=== PATIENT | female | born 1990 | race Caucasian/White ===

== ENCOUNTER 2016-08-19 19:51 | Emergency (ER) | payer OTHER ==
[2016-08-19 19:57] VITALS: BP 132/85; PULSE 79; RESP 18; TEMP 97.9
--- NOTE | 2016-08-19 20:12 | ED ---
Lower Extremity Injury HPI - General Chief Complaint: Extremity Injury, Lower Stated Complaint: R Foot Injury Time Seen by Provider: 08/19/16 20:06 Source: patient, RN notes reviewed Mode of arrival: ambulatory Limitations: no limitations - History of Present Illness Initial Comments: 26-year-old female presents emergency Department chief complaint of right foot pain. Patient states that she dropped a weight on her foot earlier today. Patient states she now has noticed bruising to the top of her foot as well as pain with walking. Patient states that she is able to bear weight chest causes increased pain. Patient denies any numbness or tingling. Patient denies any skin trauma. Patient denies any ankle pain. Patient states there is no other injuries from the incident. Patient states the pain is moderate there is no radiation. Patient states it is a achy type pain.Patient denies any recent fever, chills, shortness of breath, chest pain, back pain, abdominal pain, nausea vomiting, numbness or tingling, dysuria or hematuria, constipation or diarrhea, headaches or visual changes, or any other current symptoms. - Related Data Home Medications Medication Instructions Recorded Confirmed No Known Home Medications [No 08/19/16 08/19/16 Known Home Medications] Allergies Allergy/AdvReac Type Severity Reaction Status Date / Time No Known Allergies Allergy Verified 08/19/16 20:16 Review of Systems ROS Statement: Those systems with pertinent positive or pertinent negative responses have been documented in the HPI. ROS Other: All systems not noted in ROS Statement are negative. Past Medical History Past Medical History: No Reported History History of Any Multi-Drug Resistant Organisms: None Reported Past Surgical History: No Surgical Hx Reported Past Psychological History: No Psychological Hx Reported Smoking Status: Never smoker Past Alcohol Use History: Rare Past Drug Use History: None Reported General Exam - General Exam Comments Initial Comments: General: The patient is awake and alert, in no distress, and does not appear acutely ill. Neck: The neck is supple, there is no tenderness. Cardiovascular: There is a regular rate and rhythm. No murmur, rub or gallop is appreciated. Respiratory: Lungs are clear to auscultation, respirations are non-labored, breath sounds are equal. No wheezes, stridor, rales, or rhonchi. Musculoskeletal: Sensation intact with 2+ pulses throughout the right lower externa. Full range of motion of right knee and right ankle and right foot. Patient does appear to have some ecchymosis to the mid foot more proximal. There is no skin trauma. No tenderness to throughout the medic tarsals. Neurological: CN II-XII intact, There are no obvious motor or sensory deficits. Coordination appears grossly intact. Speech is normal. Skin: Skin is warm and dry and no rashes or lesions are noted. Psychiatric: Normal mood and affect. Limitations: no limitations Course Vital Signs 08/19/16 19:55 Temperature 97.9 F Pulse Rate 79 Respiratory 18 Rate Blood Pressure 132/85 O2 Sat by Pulse 99 Oximetry Medical Decision Making - Medical Decision Making 26-year-old female presents to emergency Department chief complaint of right foot pain. This time patient's x-rays reviewed that shows no acute fracture. At this time we discussed patient is no significant movement for contusion. We did discuss that she does need to follow-up in a week for repeat evaluation if she is not feeling 100% better. We discussed return parameters. The patient stated she understood and all her questions have been answered. His time she will be discharged home. - Radiology Data Radiology results: report reviewed, image reviewed Disposition Clinical Impression: Contusion of right foot Disposition: HOME SELF-CARE Condition: Stable Instructions: Foot Contusion (ED) Additional Instructions: Please use medication as discussed. Please follow up with family doctor if symptoms have not improved over the next two days. Please return to the emergency room if your symptoms increase or worsen or for any other concerns. Referrals: Jm Carlos DO [Doctor of Osteopathic Medicine] - 1-2 days Time of Disposition: 20:51
--- NOTE | 2016-08-19 20:39 | XR ---
Right foot HISTORY: Trauma and pain 3 views of the right foot Bone mineralization, joint spaces and alignment are maintained. Fourth digit is flexed which could li ang sensitivity. IMPRESSION: No fracture or dislocation is evident, follow-up as indicated.
== END 2016-08-19 21:17 | disposition home or self-care (01) ==
LOC: EC 19:51
DX: S90.31XA Contusion of right foot, initial encounter (principal); W20.8XXA Other cause of strike by thrown, projected or falling object, initial encounter
CPT/HCPCS: 99283

== ENCOUNTER 2017-02-10 15:31 | Emergency (ER) | payer OTHER ==
[2017-02-10 15:47] VITALS: RESP 18
--- NOTE | 2017-02-10 16:05 | ED ---
General Adult HPI - General Chief complaint: Abdominal Pain Stated complaint: Poss UTI Time Seen by Provider: 02/10/17 15:50 Source: patient, RN notes reviewed, old records reviewed Mode of arrival: ambulatory Limitations: no limitations - History of Present Illness Initial comments: chief complaint history of present illness; is a 26-year-old female who since this morning has had frequency urgency and dysuria. Patient reports having had a urinary tract infection infection in the past. - Related Data Home Medications Medication Instructions Recorded Confirmed Biotin 5 mg PO DAILY 02/10/17 02/10/17 Calcium Carbonate [Calcium] 600 mg PO DAILY 02/10/17 02/10/17 Cholecalciferol [Vitamin D3] 1,000 unit PO DAILY 02/10/17 02/10/17 [place]-3 Fatty Acids/Fish Oil [Fish 1 cap PO DAILY 02/10/17 02/10/17 Oil 1,000 mg Softgel] Turmeric Root Extract [Turmeric] 500 mg PO DAILY 02/10/17 02/10/17 Vitamin B Complex 1 cap PO DAILY 02/10/17 02/10/17 Previous Rx's Medication Instructions Recorded Phenazopyridine [Pyridium] 200 mg PO TID #6 tablet 02/10/17 Sulfamethox-Tmp 800-160Mg [Bactrim 1 each PO Q12HR #20 tab 02/10/17 DS 800-160 mg] Allergies Allergy/AdvReac Type Severity Reaction Status Date / Time No Known Allergies Allergy Verified 02/10/17 15:51 Review of Systems ROS Statement: Those systems with pertinent positive or pertinent negative responses have been documented in the HPI. review of systems no other complaints at this time other than frequency urgency and dysuria. All systems were reviewed.Past medical problems UTI, previous surgery LEEP procedure. Family history grandfather has diabetes. She denies any ALLERGIES nonsmoker drinks alcohol socially. ROS Other: All systems not noted in ROS Statement are negative. Past Medical History Past Medical History: No Reported History History of Any Multi-Drug Resistant Organisms: None Reported Past Surgical History: No Surgical Hx Reported Additional Past Surgical History / Comment(s): LEEP Past Psychological History: No Psychological Hx Reported Smoking Status: Never smoker Past Alcohol Use History: Rare Past Drug Use History: None Reported General Exam - General Exam Comments Initial Comments: General: The patient is awake and alert, in no distress, and does not appear acutely ill. here for frequency urgency urgency and dysuria. Vital signs temp 98.3 pulse 65 respiratory rate 18 pulse ox 98% room air blood pressure 119/81 Eye: Pupils are equal, round and reactive to light, extra-ocular movements are intact ; there is normal conjunctiva bilaterally. No signs of icterus. Ears, nose, mouth and throat: There are moist mucous membranes and no oral lesions. Neck: The neck is supple, there is no tenderness , no anterior cervical lymphadenopathy, thyroid not enlarged. Cardiovascular: There is a regular rate and rhythm. No murmur, rub or gallop is appreciated. Respiratory: Lungs are clear to auscultation, respirations are non-labored, breath sounds are equal. No wheezes, stridor, rales, or rhonchi. Gastrointestinal: mild tenderness in suprapubic region. No rebound or referred pain. No organomegaly. Back: no back pain with palpation or movement. Musculoskeletal: Normal ROM, no tenderness, There is no pedal edema. There is no calf tenderness or swelling. Sensation intact. Pulses equal bilaterally 2+. no complaint of any neuro deficits. Skin: bruising right thigh without complaint Limitations: no limitations Course Vital Signs 02/10/17 15:45 Temperature 98.3 F Pulse Rate 65 Respiratory 18 Rate Blood Pressure 119/81 O2 Sat by Pulse 98 Oximetry Medical Decision Making - Medical Decision Making Medical decision making the patient's urine shows negative for . She has 34 whites 6 reds. Clumps of WBCs. Plan the patient be placed on Pyridium for discomfort, advised increase her fluid intake. And Bactrim DS one tablet twice day for 10 days. - Lab Data Lab Results 02/10/17 02/10/17 Range/Units 16:02 16:02 Urine Color Yellow Urine Appearance Cloudy H (Clear) Urine pH 7.5 (5.0-8.0) Ur Specific [place] 1.014 (1.001-1.035) Urine Protein Trace H (Negative) Urine Glucose (UA) Negative (Negative) Urine Ketones Negative (Negative) Urine Blood Negative (Negative) Urine Nitrite Positive H (Negative) Urine Bilirubin Negative (Negative) Urine Urobilinogen <2.0 (<2.0) mg/dL Ur Leukocyte Esterase Small H (Negative) Urine RBC 6 H (0-5) /hpf Urine WBC 34 H (0-5) /hpf Urine WBC Clumps Rare H (None) /hpf Ur Squamous Epith Cells 2 (0-4) /hpf Amorphous Sediment Occasional H (None) /hpf Urine Bacteria Occasional H (None) /hpf Urine HCG, Qual Not Detected (Not Detectd) Disposition Clinical Impression: Urinary tract infection Disposition: HOME SELF-CARE Condition: Fair Instructions: Urinary Tract Infection in Women (ED) Additional Instructions: Increase fluids, take thyroid ADM which will turn urine orange. Don't wear contacts well using Pyridium. Take Bactrim 2 tablets daily as directed. Suggested to get repeat urinalysis 1 week after he finished antibiotics make sure infections gone. Follow-up with family physician Prescriptions: Phenazopyridine [Pyridium] 200 mg PO TID #6 tablet Sulfamethox-Tmp 800-160Mg [Bactrim DS 800-160 mg] 1 each PO Q12HR #20 tab Referrals: None,Stated [Primary Care Provider] - 1-2 days Time of Disposition: 16:38
[2017-02-10 16:27] LABS: Amorphous Sediment,Urine Occasional /hpf; Appearance,Urine Cloudy (Clear); Bacteria,Urine Occasional /hpf; Bilirubin,Urine Negative (Negative); Glucose,Urine (UA) Negative (Negative); Ketones,Urine Negative (Negative); Leukocyte Esterase,Urine Small (Negative); Nitrite,Urine Positive (Negative); PH, Urine 7.5 (5.0-8.0); Particle Count 7477; Protein,Urine Trace (Negative); RBC,Urine 6 /hpf (0-5); Specific Gravity,Urine 1.014 (1.001-1.035); Squamous Epithelial Cell,Urine 2 /hpf (0-4); UA Billing (MACRO vs. MICRO) MICRO; Urobilinogen,Urine <2.0 mg/dL (<2.0); WBC,Urine 34 /hpf (0-5)
[2017-02-10 16:45] VITALS: BP 118/72; PULSE 58; TEMP 97.1
== END 2017-02-10 16:54 | disposition home or self-care (01) ==
LOC: EC 15:31
DX: N39.0 Urinary tract infection, site not specified (principal); Z79.899 Other long term (current) drug therapy
CPT/HCPCS: 81001; 81025; 87077; 87086; 87186; 99284

== ENCOUNTER 2018-06-29 02:38 | Emergency (ER) | payer OTHER ==
[2018-06-29 02:48] VITALS: BP 126/87; PULSE 78; RESP 18; TEMP 98.2
[2018-06-29] MEDS ORDERED: AMOXIC-POT CLAV 875MG STARTER 2 EACH TABLET PO STA (03:04)
--- NOTE | 2018-06-29 03:04 | ED ---
ENT HPI - General Chief complaint: ENT Stated complaint: Earache Time Seen by Provider: 06/29/18 02:53 Source: patient Mode of arrival: ambulatory Limitations: no limitations - History of Present Illness Initial comments: Clarissa is a previously healthy 28-year-old female presents to the emergency department today for acute onset of right ear pain. Patient reports that she's been in her usual state of health until this evening, she was trying to sleep and noted that her right ear sharp pain. This prompted her come to the ER for evaluation. Patient reports she does not get frequent ear infections, she has had no history of tympanostomy tubes as a child. She does have a chronic cough but denies any recent worsening, fevers or shortness of breath. - Related Data Home Medications Medication Instructions Recorded Confirmed Biotin 5 mg PO DAILY 02/10/17 02/10/17 Calcium Carbonate [Calcium] 600 mg PO DAILY 02/10/17 02/10/17 Cholecalciferol [Vitamin D3] 1,000 unit PO DAILY 02/10/17 02/10/17 [place]-3 Fatty Acids/Fish Oil [Fish 1 cap PO DAILY 02/10/17 02/10/17 Oil 1,000 mg Softgel] Turmeric Root Extract [Turmeric] 500 mg PO DAILY 02/10/17 02/10/17 Vitamin B Complex 1 cap PO DAILY 02/10/17 02/10/17 Previous Rx's Medication Instructions Recorded Phenazopyridine [Pyridium] 200 mg PO TID #6 tablet 02/10/17 Sulfamethox-Tmp 800-160Mg [Bactrim 1 each PO Q12HR #20 tab 02/10/17 DS 800-160 mg] Amoxicillin 500 mg PO BID 10 Days #20 capsule 06/29/18 Allergies Allergy/AdvReac Type Severity Reaction Status Date / Time No Known Allergies Allergy Verified 02/10/17 15:51 Review of Systems ROS Statement: Those systems with pertinent positive or pertinent negative responses have been documented in the HPI. ROS Other: All systems not noted in ROS Statement are negative. Past Medical History Past Medical History: No Reported History History of Any Multi-Drug Resistant Organisms: None Reported Past Surgical History: No Surgical Hx Reported Additional Past Surgical History / Comment(s): LEEP Past Psychological History: No Psychological Hx Reported Smoking Status: Never smoker Past Alcohol Use History: Rare Past Drug Use History: None Reported General Exam - General Exam Comments Initial Comments: Physical Exam GENERAL: Patient is well-developed and well-nourished. Patient is nontoxic and well-hydrated and is in mild distress, appears uncomfortable holding her right ear HENT: Normocephalic, Atraumatic. Left TM normal Right TM is erythematous and injected, there are small lesions on the tympanic membrane concerning for bullous myringitis versus shingles EYES: PERRL, EOMI PULMONARY: Unlabored respirations. No audible rales rhonchi or wheezing was noted. CARDIOVASCULAR: There is a regular rate and rhythm without any murmurs gallops or rubs. ABDOMEN: Soft and nontender with normal bowel sounds. SKIN: Skin is clear with no lesions or rashes and otherwise unremarkable. : Deferred NEUROLOGIC: Patient is alert and oriented x3. Moving all extremities spontaneously MUSCULOSKELETAL: Normal extremities with adequate strength and full range of motion. No lower extremity swelling or edema. No calf tenderness. PSYCHIATRIC: Normal psychiatric evaluation. Limitations: no limitations Limitations: no limitations Course Vital Signs 06/29/18 02:44 Temperature 98.2 F Pulse Rate 78 Respiratory 18 Rate Blood Pressure 126/87 O2 Sat by Pulse 98 Oximetry Medical Decision Making - Medical Decision Making The patient was seen and evaluated, history is obtained from the patient Physical exam does reveal otitis media with effusion and purulent sputum time the right TM next line there is small lesion concerning for bullous myringitis versus possible shingles, I discussed this with the patient advised at this time I would not start steroids or antivirals however she worsens or develops any lesions in the ear canal on the ear on the patient to return to the emergency department immediately for reevaluation, patient is agreeable Amoxicillin started set was ordered First dose is given in the emergency department Patient discharged home in stable condition Disposition Clinical Impression: Otitis media Disposition: HOME SELF-CARE Instructions: Ear Infection (ED) Prescriptions: Amoxicillin 500 mg PO BID 10 Days #20 capsule Is patient prescribed a controlled substance at d/c from ED?: No Referrals: None,Stated [Primary Care Provider] - 1-2 days Time of Disposition: 03:05
== END 2018-06-29 03:12 | disposition home or self-care (01) ==
LOC: EC 02:38
DX: H66.91 Otitis media, unspecified, right ear (principal); R05 Cough
CPT/HCPCS: 99282

== ENCOUNTER → 2022-11-07 | Outpatient (CLI) | payer BC ==
[2022-11-07 20:42] LABS: HCT 35.9 % (37.2-46.3); HGB 11.7 g/dL (12.0-15.0); MCH 32.6 pg (27.0-32.0); MCHC 32.6 g/dL (32.0-37.0); Mean Platelet Volume 10.9 fL (9.5-12.2); NRBC Per 100 WBC 0 /100 WBCS (0.0-0.0); Platelet Count 207 X 10*3/uL (140-440); RBC 3.59 X 10*6/uL (4.10-5.20); RDW 12.5 % (11.5-14.5); WBC 11.65 X 10*3/uL (4.50-10.00)
== END | disposition home or self-care (01) ==
LOC: LABWHC1 11:35
PROVIDERS: ATTEND Obstetrics & Gynecology Obstetrics
DX: Z36.9 Encounter for antenatal screening, unspecified (principal)
CPT/HCPCS: 36415; 82950; 85027

== ENCOUNTER 2023-01-17 00:43 | Inpatient (IN) | payer BC ==
[2023-01-17] MEDS ORDERED: miSOPROStoL 200 MCG TAB PO PRN (01:28)
[2023-01-17] MEDS ORDERED: TRANEXAMIC 1,000 MG/100ML-NACL 1,000 MG in EMPTY BAG 1 BAG IV PRN (01:28)
[2023-01-17] MEDS ORDERED: TERBUTALINE 1 MG/ML VIAL SQ PRN (01:28)
[2023-01-17] MEDS ORDERED: METHYLERGONOVINE 0.2 MG/ML 1 ML AMP IM PRN (01:28)
[2023-01-17] MEDS ORDERED: OXYTOCIN 10 UNIT/ML 1 ML VIAL IM PRN (01:28)
[2023-01-17] MEDS ORDERED: CARBOPROST TROMETHAMINE 250 MCG/ML 1 ML AMP IM PRN (01:28)
[2023-01-17] MEDS ORDERED: LIDOCAINE 0.5% (PF) 5 MG/ML (50 ML SDV) SQ PRN (01:28)
[2023-01-17] MEDS: LACTATED RINGERS 1,000 ML IV SCH ×3 (01:30→10:06)
[2023-01-17] MEDS ORDERED: OXYTOCIN 30 UNITS/500 ML NS 30 UNIT in SALINE 1 500ML.BAG IV SCH ×2 (01:30→13:30)
[2023-01-17 08:09] LABS: Basophils % (A) 0 %; Eosinophils # (A) 0.1 k/uL (0-0.7); Eosinophils % (A) 1 %; HCT 35.4 % (34.0-46.0); HGB 11.8 gm/dL (11.4-16.0); Lymphocytes # (A) 2.3 k/uL (1.0-4.8); Lymphocytes % (A) 18 %; MCH 32.2 pg (25.0-35.0); MCHC 33.3 g/dL (31.0-37.0); MCV 96.8 fL (80.0-100.0); Mean Platelet Volume 11.2; Monocytes # (A) 0.9 k/uL (0-1.0); Monocytes % (A) 8 %; Neutrophils # (A) 8.7 k/uL (1.3-7.7); Neutrophils % (A) 71 %; Platelet Count 221 k/uL (150-450); RBC 3.66 m/uL (3.80-5.40); RDW 13.3 % (11.5-15.5); WBC 12.4 k/uL (3.8-10.6)
[2023-01-17] MEDS ORDERED: ROPIVACAINE 5 MG/ML 20 ML AMPULE ONE (09:24)
[2023-01-17] MEDS ORDERED: fentaNYL (PF) 50 MCG/ML 5 ML AMP ONE (09:24)
[2023-01-17] MEDS ORDERED: SODIUM CHLORIDE 0.9% 100 ML BAG ONE (09:24)
--- NOTE | 2023-01-17 10:42 | P.HPOB ---
History of Present Illness H&P Date: 01/17/23 Chief Complaint: 38+ weeks, spontaneous rupture of membranes, early labor The patient is a 32-year-old 1 para 0 admitted at 38+ weeks as established by last menstrual period and confirmed by second trimester ultrasound. She is admitted with documented spontaneous rupture of membranes for clear fluid. Her has been uncomplicated and group B strep status is negative. On labor and delivery, all signs reassuring with a category 1 heart rate tracing. Obstetrical history: 1 para 0 with current statistics listed in history of present illness. EDC of 01/27/2023 was established by last menstrual period and confirmed by second trimester ultrasound. Laboratory workup demonstrates a blood type of O+ with a negative antibody screen. Rubella status is immune. The remainder of the laboratory workup was within normal limits. One hour Glucola was normal and group B strep status is negative. Gynecologic history: Unremarkable with no history of any infections to include STDs. Review of Systems Review of systems is confined to history of present illness. Past Medical History Past Medical History: No Reported History History of Any Multi-Drug Resistant Organisms: None Reported Past Surgical History: No Surgical Hx Reported Additional Past Surgical History / Comment(s): LEEP Past Anesthesia/Blood Transfusion Reactions: No Reported Reaction Past Psychological History: No Psychological Hx Reported Smoking Status: Never smoker Past Alcohol Use History: Rare Past Drug Use History: None Reported Medications and Allergies Home Medications Medication Instructions Recorded Confirmed Type Aspirin [Adult Low Dose Aspirin EC] 81 mg PO DAILY 01/17/23 01/17/23 History Vit No.179/Iron/Folic 1 each PO DAILY 01/17/23 01/17/23 History [ Tablet] Allergies Allergy/AdvReac Type Severity Reaction Status Date / Time No Known Allergies Allergy Verified 02/10/17 15:51 Exam Vital Signs Temp Pulse Resp BP Pulse Ox 01/17/23 01:20 97.6 F 92 18 118/67 97 01/17/23 01:03 97.6 F 92 16 118/67 97 Intake and Output 01/16/23 01/17/23 01/17/23 22:59 06:59 14:59 Other: # Voids 2 Weight 89.358 kg In general, this is a well-developed, well-nourished white female in no acute distress. Her heart has a regular rhythm and rate without murmur. Her lungs are clear to auscultation bilaterally in all palomares. Her abdomen is gravid, nondistended, has normal active bowel sounds, is soft, nontender, and without any palpable masses aside from the uterine fundus. Her extremities are without any cyanosis, clubbing, or significant edema and are nontender to palpation bilaterally. Digital cervical examination demonstrates her cervix to be approximately 5 cm dilated, 70% effaced, the vertex in presentation at -2 station. Spontaneous rupture of membranes has been documented but amniotic membranes are palpable in front of the head and a ruptured for clear fluid artificially. Results Result Diagrams: 01/17/23 01:29 Abnormal Lab Results - Last 24 Hours (Table) 01/17/23 Range/Units 01:29 WBC 12.4 H (3.8-10.6) k/uL RBC 3.66 L (3.80-5.40) m/uL Neutrophils # 8.7 H (1.3-7.7) k/uL Assessment and Plan (1) Spontaneous rupture of amniotic membranes Current Visit: Yes Status: Acute Code(s): UAF9349 - SNOMED Code(s): 1 24122124 (2) Active labor at term Current Visit: Yes Status: Acute Code(s): CPV6424 - SNOMED Code(s): 05543034 Plan: Patient is admitted for active management of labor. She'll continue to have close maternal and surveillance and expectant management will be practice. An epidural catheter has been placed for analgesia.
[2023-01-17] MEDS ORDERED: diphenhydrAMINE 50 MG CAP PO PRN (13:29)
[2023-01-17] MEDS ORDERED: LANOLIN CREAM 5 GM TUBE TOPICAL PRN (13:29)
[2023-01-17] MEDS ORDERED: SIMETHICONE 80 MG CHEWABLE PO PRN (13:29)
[2023-01-17] MEDS ORDERED: diphenhydrAMINE 25 MG CAP PO PRN (13:29)
[2023-01-17] MEDS ORDERED: HYDROcodone/APAP 7.5-325MG 1 EACH TAB PO PRN (13:29)
[2023-01-17] MEDS ORDERED: ZOLPIDEM 5 MG TAB PO PRN (13:29)
[2023-01-17] MEDS ORDERED: diphenhydrAMINE 50 MG/ML 1 ML VIAL IVP PRN ×2 (13:29)
[2023-01-17] MEDS ORDERED: HYDROcodone/APAP 5-325MG 1 EACH TAB PO PRN (13:29)
[2023-01-17] MEDS ORDERED: BENZOCAINE/MENTHOL SPRAY 1 GM/SPRAY AEROSOL TOPICAL PRN (13:29)
[2023-01-17] MEDS ORDERED: HYDROCORTISONE 2.5% RECTAL CREAM 30 GM TUBE RECTAL PRN (13:29)
--- NOTE | 2023-01-17 13:32 | P.PROBDLV ---
Vaginal Delivery Note - . Vaginal Delivery Note: Patient is a 32-year-old 1 para 0 admitted at 38-4/7 weeks by good dating parameters. She is admitted with documented spontaneous rupture of membranes in early labor with all signs reassuring. Her has been entirely uncomplicated and group B strep status is negative. On labor and delivery, she had Pitocin augmentation started and an epidural catheter placed her on the onset of the active phase of labor. She then made steady progress to the active phase of labor to complete and pushed over the course of approximately 1 hour to a normal spontaneous vaginal delivery of a viable 7 lbs. 11 oz. baby boy with Apgars of 8 at 1 minute and 9 at 5 minutes delivered in the direct occiput anterior position. There was a nuchal cord times to which was reduced following delivery of the . The placenta was delivered spontaneously, intact, and grossly normal with a grossly normal, centrally inserted three-vessel cord. Second-degree midline perineal laceration was noted and was repaired in standard fashion using 3-0 chromic catgut without diffi culty. Estimated blood loss for the case is approximately 150 mL. There were no complications. All sponge, instrument, needle counts were correct. Both mother and infant are resting comfortably in recovery.
[2023-01-17] MEDS: IBUPROFEN 600 MG TAB PO PRN (13:54)
[2023-01-17] MEDS: ACETAMINOPHEN TAB 325 MG TAB PO PRN (19:55)
[2023-01-17] MEDS: SENNOSIDES-DOCUSATE SODIUM 1 EACH TAB PO SCH (19:56)
[2023-01-18] MEDS: IBUPROFEN 600 MG TAB PO PRN ×2 (04:24→19:48)
[2023-01-18 06:44] LABS: Basophils % (A) 0 %; Eosinophils # (A) 0.1 k/uL (0-0.7); Eosinophils % (A) 0 %; HCT 30.9 % (34.0-46.0); HGB 10.4 gm/dL (11.4-16.0); Lymphocytes # (A) 2.2 k/uL (1.0-4.8); Lymphocytes % (A) 14 %; MCHC 33.7 g/dL (31.0-37.0); MCV 97.8 fL (80.0-100.0); Mean Platelet Volume 9.7; Monocytes % (A) 6 %; Neutrophils # (A) 12.2 k/uL (1.3-7.7); Neutrophils % (A) 78 %; Platelet Count 177 k/uL (150-450); RBC 3.16 m/uL (3.80-5.40); RDW 13.2 % (11.5-15.5); WBC 15.7 k/uL (3.8-10.6)
[2023-01-18] MEDS: SENNOSIDES-DOCUSATE SODIUM 1 EACH TAB PO SCH ×2 (08:27→19:48)
--- NOTE | 2023-01-18 09:56 | P.PNOBGVD ---
Subjective - Subjective Interval history: The patient reports some struggles with nursing and wishes to remain in the h [facility]spital for assistance from the nursing staff. Patient reports: Reports appetite normal, Reports voiding normally, Reports pain well controlled, Reports ambulating normally : doing well Objective - Latest Vital Signs Latest vital signs: Vital Signs Temp Pulse Resp BP Pulse Ox 01/18/23 08:00 98.2 F 79 16 109/66 98 01/18/23 00:00 98.2 F 83 16 113/68 97 01/17/23 20:00 98.8 F 95 16 125/70 97 01/17/23 15:20 97.1 F L 85 17 121/72 01/17/23 14:50 97.8 F 80 48 H 121/59 01/17/23 14:20 72 16 118/61 01/17/23 14:05 79 17 118/62 01/17/23 13:50 85 17 117/67 01/17/23 13:35 84 17 112/55 01/17/23 13:20 95.8 F L 93 17 119/58 Intake and Output 01/17/23 01/18/23 01/18/23 22:59 06:59 14:59 Output Total 115 Balance -115 Output: Output, Quantitative 115 Blood Loss Other: # Voids 2 1 - Exam Extremities: Present: normal Abdomen: Present: normal appearance, soft Uterus: Present: normal, firm (The uterine fundus as tonic and nontender around the umbilicus.) - Labs Labs: Abnormal Lab Results - Last 24 Hours (Table) 01/18/23 Range/Units 05:24 WBC 15.7 H (3.8-10.6) k/uL RBC 3.16 L (3.80-5.40) m/uL Hgb 10.4 L (11.4-16.0) gm/dL Hct 30.9 L (34.0-46.0) % Neutrophils # 12.2 H (1.3-7.7) k/uL Assessment and Plan (1) Spontaneous rupture of amniotic membranes Current Visit: Yes Status: Acute Code(s): [id number] - SNOMED Code(s): 899956468 (2) Active labor at term Current Visit: Yes Status: Acute Code(s): SHD4940 - SNOMED Code(s): 75484446 (3) Normal spontaneous vaginal delivery Current Visit: Yes Status: Acute Code(s): O80 - ENCOUNTER FOR FULL-TERM UNCOMPLICATED DELIVERY SNOMED Code(s): 87414477 Plan: Continue routine care. I would anticipate that patient being discharged home tomorrow pending no complications. In the meantime, she will continue to receive help from the nursing staff regarding breast-feeding.
[2023-01-18] MEDS: ACETAMINOPHEN TAB 325 MG TAB PO PRN (16:07)
[2023-01-19 00:22] VITALS: RESP 16
[2023-01-19] MEDS: IBUPROFEN 600 MG TAB PO PRN (06:27)
--- NOTE | 2023-01-19 09:41 | P.DS ---
Providers Date of admission: 01/17/23 01:04 Expected date of discharge: 01/19/23 Attending physician: Nellie Dooley Primary care physician: Stated None - Discharge Diagnosis(es) (1) Active labor at term Current Visit: Yes Status: Acute (2) Normal spontaneous vaginal delivery Current Visit: Yes Status: Acute (3) Nuchal cord, delivered, current hospitalization Current Visit: Yes Status: Acute (4) Perineal laceration during delivery Current Visit: Yes Status: Acute (5) Spontaneous rupture of amniotic membranes Current Visit: Yes Status: Acute Hospital Course: Is a 32-year-old 1 now para 1 that was admitted at 38-4/7 weeks with documented spontaneous rupture of membranes and early labor. Patient was admitted. Her was uncomplicated, group beta strep status was negative. On labor and delivery she underwent Pitocin augmentation of labor and did request epidural placement. Epidural was placed without difficulty by the anesthesia department. Patient made progress to complete and began pushing. Patient had a normal spontaneous vaginal delivery of a viable male infant, weight of 7 lbs. 11 oz., . Patient did sustain a second degree midline perineal laceration that was repaired in the usual fashion with 3-0 chromic. Patient is done well . On this day #2 she is ambulating and voiding without difficulty. She tolerating regular diet without nausea or vomiting. She states her lochia is moderate. She is breast-feeding. She does wish discharge home. Patient Condition at Discharge: Good Plan - Discharge Summary New Discharge Prescriptions: No Action Aspirin [Adult Low Dose Aspirin EC] 81 mg PO DAILY Vit No.179/Iron/Folic [ Tablet] 1 each PO DAILY Discharge Medication List Aspirin [Adult Low Dose Aspirin EC] 81 mg PO DAILY 01/17/23 [History] Vit No.179/Iron/Folic [ Tablet] 1 each PO DAILY 01/17/23 [History] Follow up Appointment(s)/Referral(s): Nellie Dooley DO [Doctor of Osteopathic Medicine] - 4 Weeks Patient Instructions/Handouts: Vaginal Delivery (GEN), Vaginal Delivery (DC) Activity/Diet/Wound Care/Special Instructions: No tub baths or intercourse until 6 weeks postoperatively. [id number] ibuprofen as needed for pain. Routine check is to be scheduled for weeks . Patient is to call the office should she have any concerns prior to this appointment. Discharge Disposition: HOME SELF-CARE
[2023-01-19] MEDS: SENNOSIDES-DOCUSATE SODIUM 1 EACH TAB PO SCH (10:40)
[2023-01-19 10:54] VITALS: BP 116/65; PULSE 79; TEMP 98.4
== END 2023-01-19 14:15 | disposition home or self-care (01) | DRG 807 ==
LOC: FBPOP 00:43 → 4FBP 01:04
PROVIDERS: ADMIT Obstetrics & Gynecology; ATTEND Obstetrics & Gynecology Obstetrics
PROC: 10E0XZZ Delivery of Products of Conception, External Approach (ICD-10-PCS; principal; 2023-01-17)
PROC: 0KQM0ZZ Repair Perineum Muscle, Open Approach (ICD-10-PCS; 2023-01-17)
PROC: 3E033VJ Introduction of Other Hormone into Peripheral Vein, Percutaneous Approach (ICD-10-PCS; 2023-01-17)
DX: O42.92 Full-term premature rupture of membranes, unspecified as to length of time between rupture and onset of labor (principal); Z37.0 Single live birth; O69.81X0 Labor and delivery complicated by cord around neck, without compression, not applicable or unspecified; O70.1 Second degree perineal laceration during delivery; Z79.82 Long term (current) use of aspirin; Z3A.38 38 weeks gestation of pregnancy
CPT/HCPCS: 59025; 85025; 86850; 86900; 86901; 99213